=== PATIENT | female | born 1990 ===

== ENCOUNTER 2022-01-21 19:22 | Inpatient (IN) | payer OTHER ==
[2022-01-21] MEDS ORDERED: Tranexamic Acid 1,000 MG in Sodium Chloride 0.9% 100 ML IV PRN (20:19)
[2022-01-21] MEDS ORDERED: Terbutaline 1 MG/ML SDV SUBCUT PRN (20:19)
[2022-01-21] MEDS ORDERED: Ondansetron 4 MG/2 ML SDV IVPUSH PRN (20:19)
[2022-01-21] MEDS ORDERED: Carboprost Tromethamine 250 MCG/1 ML Amp IM PRN (20:19)
[2022-01-21] MEDS ORDERED: Water For Irrigation,Sterile 1,000 ML Container IRR PRN (20:19)
[2022-01-21] MEDS ORDERED: Misoprostol 200 MCG Tab PO PRN (20:19)
[2022-01-21] MEDS ORDERED: Sodium Chloride 0.9% 20 ML SDV IV PRN (20:19)
[2022-01-21] MEDS ORDERED: Sodium Chloride 0.9% 10 ML Syringe FLUSH PRN (20:19)
[2022-01-21] MEDS ORDERED: Butorphanol 1 MG/ML SDV IVPUSH PRN (20:19)
[2022-01-21] MEDS ORDERED: Lidocaine 1% 50 ML MDV INJECT PRN (20:19)
[2022-01-21] MEDS ORDERED: Methylergonovine 0.2 MG/1 ML Amp IM PRN (20:19)
[2022-01-21] MEDS ORDERED: Oxytocin/0.9 % Sodium Chloride 30 UNIT/500 ML BAG IV SCH ×2 (20:30)
[2022-01-21] MEDS: Lactated Ringers 1,000 ML IV SCH (21:14)
[2022-01-22] MEDS ORDERED: Ropivacaine 100 ML ONE (02:56)
[2022-01-22] MEDS: Lactated Ringers 1,000 ML IV SCH ×2 (03:05→06:26)
[2022-01-22] MEDS ORDERED: ePHEDrine 50 MG/ML SDV IVPUSH PRN ×2 (03:07)
[2022-01-22] MEDS ORDERED: Ropivacaine 200 MG in Premix Bag 1 BAG EPIDUR SCH (03:15)
[2022-01-22] MEDS ORDERED: Bisacodyl 10 MG Supp RECTAL PRN (12:34)
[2022-01-22] MEDS ORDERED: Benzocaine/Menthol 20%-0.5% Spray 78 GM Cannister TOP PRN (12:34)
[2022-01-22] MEDS ORDERED: Witch Hazel Medicated Pads 40/Jar TOP PRN (12:34)
[2022-01-22] MEDS ORDERED: Ibuprofen 400 MG Tab PO PRN (12:34)
[2022-01-22] MEDS ORDERED: Lanolin 100% Cream 7 GM Tube TOP PRN (12:34)
[2022-01-22] MEDS ORDERED: Acetaminophen 500 MG Tab PO PRN (12:34)
[2022-01-22] MEDS: Ibuprofen 800 MG Tab PO PRN ×2 (15:33→21:27)
[2022-01-22] MEDS: Acetaminophen 500 MG Tab PO PRN ×2 (20:13→23:51)
[2022-01-22] MEDS: Docusate Sodium 100 MG Cap PO PRN (20:13)
[2022-01-23] MEDS: Docusate Sodium 100 MG Cap PO PRN (08:23)
[2022-01-23] MEDS: Acetaminophen 500 MG Tab PO PRN (08:24)
== END 2022-01-23 15:11 | disposition home or self-care (01) | DRG 806 ==
LOC: MW.OBCHECK 19:22 → MW.OB 19:22 → MW.OBCHECK 19:45 → MW.OB 19:45 → OBSVTOIN 01-22 12:34 → MW.OB 01-22 15:48
PROVIDERS: ADMIT Obstetrics & Gynecology; ATTEND Obstetrics & Gynecology
PROC: 10E0XZZ Delivery of Products of Conception, External Approach (ICD-10-PCS; principal; 2022-01-22)
PROC: 10907ZC Drainage of Amniotic Fluid, Therapeutic from Products of Conception, Via Natural or Artificial Opening (ICD-10-PCS; 2022-01-22)
PROC: 0HQ9XZZ Repair Perineum Skin, External Approach (ICD-10-PCS; 2022-01-22)
PROC: 3E033VJ Introduction of Other Hormone into Peripheral Vein, Percutaneous Approach (ICD-10-PCS; 2022-01-22)
PROC: 3E0R3BZ Introduction of Anesthetic Agent into Spinal Canal, Percutaneous Approach (ICD-10-PCS; 2022-01-22)
PROC: 00HU33Z Insertion of Infusion Device into Spinal Canal, Percutaneous Approach (ICD-10-PCS; 2022-01-22)
DX: O99.214 Obesity complicating childbirth (principal); O99.12 Other diseases of the blood and blood-forming organs and certain disorders involving the immune mechanism complicating childbirth; Z37.0 Single live birth; Z20.822 Contact with and (suspected) exposure to COVID-19; D69.6 Thrombocytopenia, unspecified; O70.0 First degree perineal laceration during delivery; Z3A.39 39 weeks gestation of pregnancy
CPT/HCPCS: 01967; 36415; 51702; 59025; 59409; 85027; 86592; 86850; 86900; 86901; A9270-GY; J2370; J2405; J2590; J2795; J7120; U0002